=== PATIENT | female | born 1965 | race Caucasian/White ===

== ENCOUNTER → 2024-12-29 | Outpatient (CLI) | payer MEDICAID, SELFPAY ==
--- NOTE | 2024-12-29 13:15 | XR_ITS ---
EXAMINATION: PET/CT FUSION SKULL TO THIGH EXAM DATE AND TIME: December 29, 2024 1409 hours INDICATIONS: Diagnosis solitary pulmonary nodule CTDI:vol (mGy) 8.1 DLP: (mGycm) 840.82 PROCEDURE: 16.1 mCi FDG was administered intravenously To allow for distribution and uptake of radiotracer, the patient was allowed to rest quietly in a shielded room. Imaging was performed on an integrated 16-slice PET/CT scanner, with scanning from the skull base to the mid thigh. Serum blood glucose at the time of the injection was measured 81 mg/dL. CT scanning was performed without oral or intravenous contrast material. FINDINGS: Head and Neck: There is no magno hypermetabolism in the neck. The visualized portions of the brain are normal in appearance on CT. Chest: 9 mm nodule left upper lobe irregular margins Abdomen and Pelvis: 10 mm hypermetabolic area upper pole left kidney. Musculoskeletal: Marrow uptake is within normal range. IMPRESSION: Non hypermetabolic 9 mm pulmonary nodule left upper lobe Recommend renal sonography follow-up to exclude 10 mm mass upper pole left kidney
== END | disposition home or self-care (01) ==
PROVIDERS: Referring Provider Nurse Practitioner Family; Visit Provider Nurse Practitioner Family
DX: R91.1 Solitary pulmonary nodule (principal); F17.210 Nicotine dependence, cigarettes, uncomplicated
CPT/HCPCS: 78815; A9552